=== PATIENT | male | born 1990 | race Caucasian/White ===

== ENCOUNTER 2018-01-19 16:41 | Emergency (ER) | payer OTHER ==
[2018-01-19 17:11] VITALS: BP 114/69
--- NOTE | 2018-01-19 18:17 | UC ---
Truncal Trauma HPI - HPI Summary HPI Summary: WHILE AT WORK TODAY SLIPPED AND FELL LANDING ON THE FLAT SURFACE OF A SQUARE SHAPED PIPE STRIKING HIS RIGHT POSTERIOR RIB CAGE. HAS PAIN WITH MOVEMENT. DENIES ANY SHORTNESS OF BREATH, FEVER OR PLEURITIC PAIN. - History Of Current Complaint Chief Complaint: UCUpperExtremity Stated Complaint: RIB INJURY WC Time Seen by Provider: 01/19/18 17:31 Hx Obtained From: Patient Onset/Duration: Sudden Onset, Lasting Hours, Still Present Onset Of Pain: Immediate Severity Initially: Moderate Severity Currently: Moderate Pain Intensity: 5 Pain Scale Used: 0-10 Numeric Mechanism Of Injury: Blunt Trauma Aggravating Factor(s): Movement Alleviating factor(s): OTC Medication - IBUPROFEN Associated Signs And Symptoms: Negative: SOB, Chest Pain, Cough, Hematuria, Abdominal Pain, Fever, Nausea, Vomiting - Allergies/Home Medications Allergies/Adverse Reactions: Allergies Allergy/AdvReac Type Severity Reaction Status Date / Time No Known Allergies Allergy Verified 01/19/18 17:12 Home Medications: Home Medications NK [No Home Medications Reported] 01/19/18 [History Confirmed 01/19/18] PMH/Surg Hx/FS Hx/Imm Hx Previously Healthy: Yes - Surgical History Surgical History: None - Family History Known Family History: Negative: Hypertension - Social History Alcohol Use: None Substance Use Type: None Smoking Status (MU): Never Smoked Tobacco Review of Systems Constitutional: Negative Skin: Negative Respiratory: Negative Cardiovascular: Negative Gastrointestinal: Negative Musculoskeletal: Other: - RIGHT POSTERIOR RIB CAGE PAIN All Other Systems Reviewed And Are Negative: Yes Physical Exam Triage Information Reviewed: Yes Appearance: Well-Appearing, No Pain Distress, Well-Nourished Vital Signs: Initial Vital Signs Temp 97.6 F 01/19/18 17:05 Pulse 64 01/19/18 17:05 Resp 15 01/19/18 17:05 BP 114/69 01/19/18 17:05 Pulse Ox 100 01/19/18 17:05 Vital Signs Reviewed: Yes Eyes: Positive: Conjunctiva Clear ENT: Positive: Hearing grossly normal Neck: Positive: Supple Respiratory Exam: Normal Cardiovascular Exam: Normal Abdomen Description: Positive: Soft Musculoskeletal: Positive: ROM Intact, No Edema, Other: - MILDLY TENDER RIGHT POSTERIOR RIB CAGE Neurological: Positive: Alert Psychological: Positive: Age Appropriate Behavior Skin: Negative: rashes Truncal Trauma Course/Dx - Course Course Of Treatment: MILD DISCOMFORT TO RIGHT POSTERIOR RIB CAGE WITH PALPATION AND MOVEMENT. NO DISCOMFORT WITH COUGHING OR DEEP BREATHS. NO BRUISING OR SWELLING. PRESENTATION MORE CONSISTENT WITH CONTUSION THAN FRACTURE. WILL HOLD OFF ON X-RAYS FOR TODAY. ADVISED PATIENT TO REST OVER THE NEXT FEW DAYS AND TAKE IBUPROFEN FOR DISCOMFORT. FOLLOW-UP IF SYMPTOMS NOT IMPROVING EXPECTED. - Differential Dx/Diagnosis Provider Diagnoses: RIGHT RIB CONTUSION Discharge - Sign-Out/Discharge Documenting (check all that apply): Patient Departure All imaging exams completed and their final reports reviewed: No Studies - Discharge Plan Condition: Stable Disposition: HOME Patient Education Materials: Rib Contusion (ED) Print Language: KOREAN Referrals: Alexy Foley MD [Medical Doctor] - 2 Weeks Additional Instructions: YOUR EXAM IS MORE CONSISTENT WITH A RIB CONTUSION THAN A FRACTURE. NO INDICATION FOR X-RAYS TODAY. REST AND TAKE OTC IBUPROFEN NEEDED FOR DISCOMFORT. IF YOU DEVELOP EXPANDING BRUISING, FEVER, INCREASED PAIN, NAUSEA OR ANY OTHER CONCERNING SYMPTOMS GO DIRECTLY TO THE [facility] [place] ED FOR FURTHER EVALUATION. IBUPROFEN MAX DOSE: 600MG (3 TABS) EVERY 6 HRS OR 800MG (4 TABS) EVERY 8 HRS I RECOMMEND YOU REFRAIN FROM ANY STRENUOUS PHYSICAL ACTIVITY FOR AT LEAST 3 DAYS BUT IDEALLY UNTIL YOU ARE PAIN FREE. - Billing Disposition and Condition Condition: STABLE Disposition: Home
== END 2018-01-19 18:30 | disposition home or self-care (01) ==
LOC: UCEAST 16:41
DX: S20.221A Contusion of right back wall of thorax, initial encounter (principal); W01.0XXA Fall on same level from slipping, tripping and stumbling without subsequent striking against object, initial encounter; Y93.9 Activity, unspecified; Y92.9 Unspecified place or not applicable; Y99.0 Civilian activity done for income or pay
CPT/HCPCS: 99201; G0463